=== PATIENT | female | born 1995 | race Two or more races ===

== ENCOUNTER 2017-12-27 18:52 | Emergency (ER) | payer MEDICAID ==
[~2017-12-27] VITALS: Ht 152.4 cm; Wt 65.8 kg
[2017-12-27] MEDS ORDERED: IBUPROFEN 600 MG TAB PO ONE ×2 (20:26→20:30)
[2017-12-27 21:16] VITALS: BP 128/61
== END 2017-12-27 22:04 | disposition home or self-care (01) ==
LOC: ER 18:52 → EDBD 18:52 → ER 22:04
DX: S63.502A Unspecified sprain of left wrist, initial encounter (principal); S50.811A Abrasion of right forearm, initial encounter; V43.62XA Car passenger injured in collision with other type car in traffic accident, initial encounter; Y93.89 Activity, other specified; Y92.488 Other paved roadways as the place of occurrence of the external cause; Y99.8 Other external cause status
CPT/HCPCS: 73090

== ENCOUNTER 2018-07-11 11:21 | Emergency (ER) | payer SELFPAY ==
[~2018-07-11] VITALS: Ht 152.4 cm; Wt 66.7 kg
[2018-07-11 11:27] VITALS: BP 114/64
[2018-07-11] MEDS ORDERED: SODIUM CHLORIDE 0.9% 500 ML IVB ONE (11:44)
[2018-07-11] MEDS ORDERED: MORPHINE SULFATE 4 MG/ML SYR/VIAL IV ONE (11:45)
[2018-07-11] MEDS ORDERED: ONDANSETRON HCL 4 MG/2 ML VIAL IV ONE (11:45)
[2018-07-11 12:43] LABS: Hematocrit 41.7 % (36.0-46.0); Hemoglobin 13.6 g/dL (12.2-16.2); Mean Corpuscular Hemoglobin 28.3 pg (28.0-32.0); Mean Corpuscular Hgb Conc. 32.6 g/dL (32.0-36.0); Mean Corpuscular Volume 86.7 fL (80.0-100.0); Platelet Count (auto) 241 10^3/uL (140-450); Red Blood Cells 4.81 10^6/uL (4.0-5.20); White Blood Cell 26.2 10^3/uL (4.4-10.8)
[2018-07-11 12:54] LABS: Albumin 3.8 g/dL (3.4-5.0); Calcium 8.5 mg/dL (8.5-10.1); Potassium 3.3 mmol/L (3.5-5.1)
[2018-07-11 12:56] LABS: Basophils % (manual) 0 (0.0-2.0); Blast Cells 0; Eosinophils % (manual) 0 (0-7); Metamyelocytes % 0; Myelocytes % 0; Promyelocytes % 0; Reactive Lymphocytes 0
[2018-07-11 12:57] LABS: BUN/Creatinine Ratio 11.4; Bilirubin, Total 1.6 mg/dL (0.2-1.0); Total Protein 7.5 g/dL (6.4-8.2)
[2018-07-11 13:05] LABS: Band Neutrophils % (manual) 7; Lymphocytes % (manual) 1 (10.0-50.0); Monocytes % (manual) 1 (0-12)
[2018-07-11 14:14] LABS: Urine Bacteria NONE SEEN /hpf (None Seen); Urine Blood 3+ /uL (Negative); Urine Specific Gravity 1.016 (1.001-1.035); Urine WBC 33 /hpf (0 - 5)
[2018-07-11] MEDS ORDERED: LEVOFLOXACIN 500MG 100 ML IV ONE (15:45)
== END 2018-07-11 17:30 | disposition home or self-care (01) ==
LOC: ER 11:21
DX: N39.0 Urinary tract infection, site not specified (principal)
CPT/HCPCS: 36415; 76856; 80053; 81001; 81025; 82150; 83690; 85007; 85027; 93005; 94761; 96365; 96375; 99284; J1956; J2270; J2405; J7030